=== PATIENT | male | born 1985 | race Caucasian/White ===

== ENCOUNTER 2021-12-17 14:59 | Emergency (ER) | payer BC, MEDICAID ==
[2021-12-17] MEDS ORDERED: Thiamine 100 MG Tab PO ONE (15:15)
[2021-12-17] MEDS ORDERED: Folic Acid 1 MG Tab PO ONE (15:15)
== END 2021-12-17 15:40 | disposition left against medical advice (07) ==
LOC: MW.ED 14:59
DX: F10.10 Alcohol abuse, uncomplicated (principal)
CPT/HCPCS: 99282; 99284